=== PATIENT | male | born 1980 | race Caucasian/White ===

== ENCOUNTER 2020-01-07 08:11 | Outpatient (CLI) | payer OTHER, SELFPAY ==
--- NOTE | ~2020-01-07 | XR_ITS ---
XR shoulder RT min 2V DATE: 01/07/2020 08:51 INDICATION: Right shoulder pain for 2 months TECHNIQUE: 4 views COMPARISON: None FINDINGS: No fracture or dislocation, periosteal reaction or bone destruction or abnormal soft tissue calcification. IMPRESSION: No significant abnormality Reviewed, dictated and finalized at location A. IMPRESSION: No significant abnormality
== END 2020-01-07 08:12 | disposition home or self-care (01) ==
LOC: CHSIMG 08:12
PROVIDERS: PCP Family Medicine; Visit Provider Orthopaedic Surgery
DX: M25.511 Pain in right shoulder (principal)
CPT/HCPCS: 73030

== ENCOUNTER 2020-09-12 08:39 | Outpatient (CLI) | payer OTHER, SELFPAY ==
--- NOTE | 2020-10-01 21:13 | WPDHOMESLEEP ---
Sleep Study - Home Unattended Date of Study: 09/12/20 Ordering Provider: Yelena Liang MD Interpreting Provider: Yen Esquivel MD Home Sleep Study Type: Watch PAT Height: 1.91 m Weight: 181.437 kg Body Mass Index: 50.0 Neck Circumference (inches): 19 [place]: 11 Reason for Sleep Study Hypersomnia Sleep History Jared Garcia is a 40 year old man with complaints of snoring and feeling tired after waking. He does not awaken from sleep feeling short of breath. He does not awaken at night with heartburn, belching or coughing. He constantly snores and it is loud enough that others complain about it. He rarely has trouble sleep with a cold. He rarely wakes up gasping for breath at night. He occasionally has breathing problems at night observed by others. He occasionally sweats excessively at night. Does not notice his heart pounding or beating irregularly at night. He frequently falls asleep during the day, frequently falls asleep involuntarily. He never falls asleep while driving. He does not fall asleep while exerting physical effort. He does not have loss of muscle tone was strong emotion. He occasionally has daytime difficulties due to excessive sleepiness. He does not feel paralyzed on waking or falling asleep nor does he have vivid dreamlike scenes upon awakening or falling asleep. He is not afraid to go to sleep. He does not have nightmares. He does not remembers dreams. He occasionally has racing thoughts. He rarely feels sad or depressed. He frequently has anxiety. He does not have muscular tension. He rarely notices parts of his body jerking. He does not kick at night. He rarely has crawling and aching feelings in his legs. He rarely has any kind of leg pain at night. He does not have morning jaw pain. He occasionally grind his teeth during sleep. He is not bothered by pain during the day and is not awakened by pain at night. He does not wake up feeling stiff in the morning. He does not wake up with sore achy muscles are pain in the neck and spine. He has headaches, fatigue and memory problems. Normal bedtime is 12 midnight taking 15 minutes fall asleep waking once at most to go to the bathroom. Sometimes he moves to the living room while he is awake at night. He is able to return to sleep in a few minutes. He wakes at 6 in the morning. On the weekends he may stay awake until 1:00 a.m. and wakes at 7:00 a.m.. He estimates getting 6-8 hours of sleep at night. He always feels tired. Awakens in the middle of the night. Habits: Never smoked tobacco. Caffeine: a lot. Alcohol: none. Recreational drugs: none. FORMERLY [facility] Past Medical History Medical History (Updated 10/01/20 @ 22:02 by Yen Esquivel MD) Daytime hypersomnolence Right rotator cuff tendonitis Seizures 01/26/2017 Surgical History Surgical History [place] teeth extracted 2005 Family History Family History Father Malignant neoplasm of prostate Social History Social History (Updated 10/01/20 @ 21:26 by Yen Esquivel MD) Smoking status: Never smoker Second hand tobacco smoke exposure: No Alcohol intake: current Alcohol use details: 2-3 per week Substance use: never Substance use type: does not use Gender identity (if verbalized by the patient): Male Medications Home Medications Medication Instructions Recorded Confirmed Type phenytoin sodium extended 100 mg 200 mg PO BID #360 cap 09/18/20 Rx capsule Sleep Procedure The sleep study was completed using WatchPAT a technically adequate device with seven channels: peripheral arterial tone, actigraphy, body position, snore, respiratory movement, pulse oximetry, sleep staging, and heart rate. Prior to using the device, the patient received verbal and written instructions for its application and was provided with the help desk phone n
[2020-10-01 21:19] VITALS: BMI 50.0
== END 2020-09-16 14:35 | disposition home or self-care (01) ==
LOC: ANHCSM 08:40
PROVIDERS: PCP Family Medicine; Visit Provider Family Medicine
DX: G47.33 Obstructive sleep apnea (adult) (pediatric) (principal)
CPT/HCPCS: 95800

== ENCOUNTER 2020-11-13 07:43 | Outpatient (CLI) | payer OTHER, SELFPAY ==
--- NOTE | 2020-12-07 14:34 | WPDSLEEPSTUD ---
Sleep Study Date of Study: 11/13/20 Ordering Provider: Yelena Liang MD Interpreting Physician: Yen Esquivel MD Sleep Study Type: BiPAP Titration Height: 1.93 m Weight: 171.458 kg Body Mass Index: 46.0 Neck Circumference (inches): 19 [place]: 11 Reason for Sleep Study * 09/12/2020 Home sleep test using WatchPat with severe obstructive sleep apnea, AHI of 38.8, desaturation 81%, snoring, and a central apnea index of 4.2. He presents for a CPAP titration Sleep History Jared Garcia is a 40 year old man with complaints of snoring and feeling tired after waking. He does not awaken from sleep feeling short of breath. He does not awaken at night with heartburn, belching or coughing. He constantly snores and it is loud enough that others complain about it. He rarely has trouble sleep with a cold. He rarely wakes up gasping for breath at night. He occasionally has breathing problems at night observed by others. He occasionally sweats excessively at night. Does not notice his heart pounding or beating irregularly at night. He frequently falls asleep during the day, frequently falls asleep involuntarily. He never falls asleep while driving. He does not fall asleep while exerting physical effort. He does not have loss of muscle tone was strong emotion. He occasionally has daytime difficulties due to excessive sleepiness. He does not feel paralyzed on waking or falling asleep nor does he have vivid dreamlike scenes upon awakening or falling asleep. He is not afraid to go to sleep. He does not have nightmares. He does not remembers dreams. He occasionally has racing thoughts. He rarely feels sad or depressed. He frequently has anxiety. He does not have muscular tension. He rarely notices parts of his body jerking. He does not kick at night. He rarely has crawling and aching feelings in his legs. He rarely has any kind of leg pain at night. He does not have morning jaw pain. He occasionally grind his teeth during sleep. He is not bothered by pain during the day and is not awakened by pain at night. He does not wake up feeling stiff in the morning. He does not wake up with sore achy muscles are pain in the neck and spine. He has headaches, fatigue and memory problems. Normal bedtime is 12 midnight taking 15 minutes fall asleep waking once at most to go to the bathroom. He wakes in the middle of the night when he does have nocturnal awakenings. Sometimes he moves to the living room while he is awake at night. He is able to return to sleep in a few minutes. He wakes at 6 in the morning. On the weekends he may stay awake until 1:00 a.m. and wakes at 7:00 a.m.. He estimates getting 6-8 hours of sleep at night. He always feels tired. Habits: Never smoked tobacco. Caffeine: a lot. Alcohol: none. Recreational drugs: none. FORMERLY [facility], [facility] Past Medical History Medical History Family history of prostate cancer in father Right rotator cuff tendonitis Seizures 01/26/2017 Sleep apnea Surgical History Surgical History [place] teeth extracted 2005 Family History Family History Father Malignant neoplasm of prostate Social History Social History Smoking status: Never smoker Second hand tobacco smoke exposure: No Alcohol intake: current Alcohol use details: 2-3 per week Substance use: never Substance use type: does not use Gender identity (if verbalized by the patient): Male Medications Home Medications Medication Instructions Recorded Confirmed Type phenytoin sodium extended 100 mg 200 mg PO BID #360 cap 11/18/20 11/18/20 Rx capsule Sleep Procedure This test was performed using the [employer] multiple channel system including EOG, EEG, submental EMG, EKG, nasal and oral air
[2020-12-07 14:53] VITALS: BMI 46.0
== END 2020-11-14 06:33 | disposition home or self-care (01) ==
LOC: ANHCSM 07:52
PROVIDERS: PCP Family Medicine; Visit Provider Family Medicine
DX: G47.33 Obstructive sleep apnea (adult) (pediatric) (principal); Z68.42 Body mass index [BMI] 45.0-49.9, adult
CPT/HCPCS: 95811

== ENCOUNTER 2021-09-08 16:45 | Emergency (ER) | payer OTHER, SELFPAY ==
[2021-09-08 16:54] VITALS: BP 151/91; PULSE 82; RESP 16; TEMP 37.2; O2SAT 98
--- NOTE | 2021-09-08 17:05 | ED.SKABFB ---
HPI - Skin/Abscess/Foreign Bdy General Chief complaint: Skin/Abscess/Foreign Body Stated complaint: rash Time Seen by Provider: 09/08/21 17:06 Source: patient Mode of arrival: ambulatory Limitations: no limitations History of Present Illness HPI narrative: 41-year-old male presented for complaint of poison richard rash to both forearms for 2 days. He states he did yard work prior to the rash. Endorses it is spreading and itching. Denies face involvement, denies lip, tongue, throat itching or swelling. He has been taking [id number] creams with minimal relief. Denies a history of poison richard reaction. MD complaint: rash Related Data Allergies Allergy/AdvReac Type Severity Reaction Status Date / Time Penicillins Allergy Severe Difficulty Verified 09/08/21 17:10 Breathing Review of Systems Review of Systems: CONSTITUTIONAL: Denies body aches, fever, chills, or sweats. EYES: Denies visual changes, redness, or discharge. ENT: Denies rhinorrhea, congestion CARDIOVASCULAR: Denies chest pain, palpitations, or edema. RESPIRATORY: Denies cough or dyspnea. SKIN: Reports rash, itching PMFSH Past Medical History Medical History Family history of prostate cancer in father Right rotator cuff tendonitis Seizures 01/26/2017 Sleep apnea Surgical History Surgical History [place] teeth extracted 2005 Family History Family History Father Malignant neoplasm of prostate Social History Social History Smoking status: Never smoker Second hand tobacco smoke exposure: No Alcohol intake: current Alcohol use details: 2-3 per week Substance use: never Substance use type: does not use Gender identity (if verbalized by the patient): Male Comments At time of signature, I have reviewed and agree with nursing past medical, surgical, social and family history unless otherwise noted. Please see nursing chart for further information. There is no relevant family history pertinent to the presenting complaint Exam Narrative: GENERAL: Well-appearing EYES: conjunctivae clear, and EOMI. ENT: Mucous membranes moist. Oropharynx without edema, erythema or lesions. CHEST: Clear to auscultation. No respiratory distress. HEART: Regular rate and rhythm. SKIN: Warm, dry. Patches of erythematous papular rash to bilateral forearms c/w contact dermatitis NEURO: Alert and oriented x3. PSYCH: Normal mood and affect Course Course Emergency Course: Patient is aware of diagnosis, understands and agrees to treatment plan. Anticipatory guidance given. Patient agrees to follow-up as directed and is aware of reasons to seek care at the emergency department. Portions of this record may have been created with voice recognition software Level of Care: Express Care Visit Vital Signs Vital signs: Vital Signs Temperature 98.9 F 09/08/21 16:54 Pulse Rate 82 09/08/21 16:54 Respiratory Rate 16 09/08/21 16:54 Blood Pressure 151/91 H 09/08/21 16:54 Pulse Oximetry 98 09/08/21 16:54 Oxygen Delivery Room Air 09/08/21 16:54 Temperature 98.9 F 09/08/21 16:54 Pulse Rate 82 09/08/21 16:54 Respiratory Rate 16 09/08/21 16:54 Blood Pressure 151/91 H 09/08/21 16:54 Pulse Oximetry 98 09/08/21 16:54 Oxygen Delivery Room Air 09/08/21 16:54 Reviewed MDM - Skin/Abscess/Foreign Bdy MDM Narrative Medical decision making narrative: Does not appear at this time to be erythema multiforme, bullous, SJS, TEN Patient looks well, nontoxic and is tolerating oral intake; no neurologic signs or symptoms; no headache, photophobia or neck pain; afebrile; appropriate for initial outpatient treatment; discussed the importance of follow-up, patient agrees Instructed patient to go to nearest ER immedi
== END 2021-09-08 17:12 | disposition home or self-care (01) ==
PROVIDERS: Emergency Provider Nurse Practitioner Family; PCP Family Medicine
DX: L23.9 Allergic contact dermatitis, unspecified cause (principal); G40.909 Epilepsy, unspecified, not intractable, without status epilepticus; G47.30 Sleep apnea, unspecified
CPT/HCPCS: 99213; G0463

== ENCOUNTER 2022-05-20 08:05 | Outpatient (CLI) | payer OTHER, SELFPAY ==
[2022-05-20 20:09] LABS: Vitamin D 25 Hydroxy 68.4 ng/mL
[2022-05-20 20:31] LABS: Basophils Percent Auto 0.3 % (0.2-1.2); Eosinophils Absolute Auto 0.1 K/mm3 (0-0.3); Eosinophils Percent Auto 0.9 % (0-4.4); Hemoglobin 15.6 g/dL (14.0-18.0); Immature Granulocyte Absolute 0.02 K/mm3 (0.00-0.031); Immature Granulocyte Percent A 0.3 % (0-0.5); Lymphocytes Absolute Auto 1.51 K/mm3 (0.9-3.2); Lymphocytes Percent Auto 23.7 % (18.3-44.2); Mean Corpuscular HGB Conc 33.2 g/dl (32-36); Mean Corpuscular Hemoglobin 30.1 pg (26-34); Mean Corpuscular Volume 90.7 fl (80-100); Mean Platelet Volume 10.2 fl (7.4-10.4); Monocytes Absolute Auto 0.4 K/mm3 (0.1-0.6); Neutrophils Absolute Auto 4.4 K/mm3 (1.3-6.7); Neutrophils Percent Auto 68.8 % (45.5-73.1); Platelet Count Result 268 k/mm3 (150-375); Red Blood Count 5.18 M/mm3 (4.6-6.20); Red Cell Distribution Width 13.4 % (11.5-14.5); White Blood Count 6.4 K/mm3 (4.5-10.0)
[2022-05-20 20:48] LABS: LDL Cholesterol Direct 86 mg/dL
[2022-05-20 21:08] LABS: Alanine Aminotransferase 29 U/L (6-50); Albumin Level 4.2 g/dL (3.5-5.1); Alkaline Phosphatase 125 U/L (38-126); Anion Gap 6 mmol/L (8-16); Aspartate Amino Transferase 42 U/L (17-59); Bilirubin,Total 0.4 mg/dL (0.2-1.3); Blood Urea Nitrogen 9 mg/dL (9-20); Calcium 8.4 mg/dL (8.4-10.2); Carbon Dioxide 29 mmol/L (22-30); Chloride 107 mmol/L (98-107); Cholesterol 143 mg/dL (0-200); Estimated Glomerular Filt Rate > 60; Glucose 87 mg/dL (65-110); HDL Direct 35 mg/dL; Potassium 4.5 mmol/L (3.4-5.0); Sodium 142 mmol/L (137-145); Triglycerides 75 mg/dL (<150)
[2022-05-20 21:11] LABS: Prostate Specific Antigen 0.4 ng/mL (< OR = 4.0)
[2022-05-20 21:38] LABS: Phenytoin Dilantin < 3 ug/mL (10-20)
[2022-05-20 23:04] LABS: Hemoglobin A1C 4.9 % (<5.7)
== END 2022-05-20 08:06 | disposition home or self-care (01) ==
LOC: ANHGOSHLAB 08:06
PROVIDERS: PCP Family Medicine; Visit Provider Family Medicine
DX: Z00.00 Encounter for general adult medical examination without abnormal findings (principal); Z80.42 Family history of malignant neoplasm of prostate; Z12.5 Encounter for screening for malignant neoplasm of prostate; E55.9 Vitamin D deficiency, unspecified; E53.8 Deficiency of other specified B group vitamins; Z13.29 Encounter for screening for other suspected endocrine disorder; R56.9 Unspecified convulsions; G47.33 Obstructive sleep apnea (adult) (pediatric); R73.9 Hyperglycemia, unspecified; Z79.899 Other long term (current) drug therapy; Z51.81 Encounter for therapeutic drug level monitoring; E78.5 Hyperlipidemia, unspecified
CPT/HCPCS: 36415; 80053; 80061; 80185; 82306; 82607; 83036; 84153; 84443; 85025; G0103

== ENCOUNTER 2023-08-16 08:31 | Outpatient (CLI) | payer OTHER, SELFPAY ==
--- NOTE | ~2023-08-16 | XR_ITS ---
Left foot Technique: AP, oblique, and lateral views were obtained. Clinical History: Pain Findings: No acute fracture or dislocation is seen. Osseous alignment is anatomic. Joint spaces are p reserved without erosive or degenerative change. Plantar calcaneal spur noted. Soft tissues are unrem arkable. Impression: Plantar calcaneal spur. Reviewed, dictated and finalized at location . Impression: Plantar calcaneal spur.
--- NOTE | ~2023-08-16 | XR_ITS ---
Left ankle Technique: AP and lateral views were obtained. Clinical History: Pain Findings: No acute fracture or dislocation is seen. Osseous alignment is anatomic. Ankle mortise and other visualized joint spaces are preserved. Mild diffuse soft tissue edema noted. Impression: No fracture or dislocation. Mild diffuse soft tissue edema, nonspecific. Reviewed, dictated and finalized at [facility]. Impression: No fracture or dislocation. Mild diffuse soft tissue edema, nonspecific.
== END 2023-08-16 08:32 | disposition home or self-care (01) ==
LOC: CHSIMG 08:33
PROVIDERS: PCP Family Medicine; Visit Provider Nurse Practitioner Family
DX: S99.912A Unspecified injury of left ankle, initial encounter (principal); M79.672 Pain in left foot; M77.32 Calcaneal spur, left foot; M79.89 Other specified soft tissue disorders
CPT/HCPCS: 73600; 73630